=== PATIENT | male | born 2005 | race African-American/Black ===

== ENCOUNTER 2025-02-16 19:54 | Emergency (ER) | payer OTHER, SELFPAY ==
[~2025-02-16] VITALS: Ht 182.9 cm; Wt 70.0 kg
--- NOTE | 2025-02-16 20:22 | ED.PDOC ---
Musculoskeletal HPI Comments 19-year-old male came to ER via EMS for right shoulder pain. Patient was playing football at around 7:00 p.m., jump up to catch the ball with his right hand, when he felt his right shoulder pop. Right shoulder deformity noted. Denies any history of dislocations Chief Complaint: Upper Extremity Time Seen by MD: 20:21 Reviewed Notes: Nurses Notes Allergies: Coded Allergies: NO KNOWN ALLERGIES (Unverified , 02/16/25) Home Meds Active Scripts Meloxicam (Meloxicam) 7.5 Mg Tab, 1 TAB PO DAILY PRN, #30 TAB 2 Refills Prov:NATA JAMES MD 02/16/25 Information Source: Patient Mode of Arrival: Ambulatory Location: Right Extremity Location: Shoulder Timing: Minutes Severity: Moderate Able to Move Extremity: No Bear Weight: Limited Pain: Moderate Hand Dominance: Right Mechanism: Spontaneous Circumstances: Sporting Onset of Symptoms: Spontaneous Symptoms: Swelling, Pain Associated signs and symptoms: Shoulder pain (Right) Past Medical History PAST MEDICAL HISTORY: Denies Surgical History: Denies all surgeries Family History Family History: Reviewed,noncontributory to illness Social History Smoker: Non-Smoker Alcohol: Denies ETOH Use Drugs: Denies Drug Use Lives In: Home Constitutional: denies: chills, diaphoresis, fatigue, fever, malaise, sweats, weakness, others EENTM: denies: blurred vision, double vision, ear bleeding, ear discharge, ear drainage, ear pain, ear ringing, eye pain, eye redness, hearing loss, mouth pain, mouth swelling, nasal discharge, nose bleeding, nose congestion, nose pain, photophobia, tearing, throat pain, throat swelling, voice changes, others Respiratory: denies: cough, hemoptysis, orthopnea, SOB at rest, shortness of breath, SOB with excertion, stridor, wheezing, others Cardiovascular: denies: chest pain, dizzy spells, diaphoresis, Dyspnea on exertion, edema, irregular heart beat, left arm pain, lightheadedness, palpitations, PND, syncope, others Gastrointestinal: denies: abdomen distended, abdominal pain, blood streaked bowels, constipated, diarrhea, dysphagia, difficulty swallowing, hematemesis, melena, nausea, poor appetite, poor fluid intake, rectal bleeding, rectal pain, vomiting, others Genitourinary: denies: burning, dysuria, flank pain, frequency, hematuria, incontinence, penile discharge, penile sore, pain, testicle pain, testicle swelling, urgency, others Neurological: denies: dizziness, fainting, headache, left sided numbness, left sided weakness, numbness, paresthesia, pre-existing deficit, right sided numbne ss, right sided weakness, seizure, speech problems, tingling, tremors, weakness, others Musculoskeletal: reports: joint pain (Right shoulder); denies: back pain, gout, joint swelling, muscle pain, muscle stiffness, neck pain, others Integumetry: denies: bruises, change in color, change in hair/nails, dryness, laceration, lesions, lumps, rash, wounds, others Allergic/Immunocompromised: denies: Difficulty Healing, Frequent Infections, Hives, Itching, others Hematologic/Lymphatic: denies: anemia, blood clots, easy bleeding, easy bruising, swollen glands, others Endocrine: denies: excessive hunger, excessive sweating, excessive thirst, excessive urination, flushing, intolerance to cold, intolerance to heat, unexplained weight gain, unexplained weight loss, others Psychiatric: denies: anxiety, bipolar disorder, depression, hopeless, panic disorder, schizophrenia, sleepless, suicidal, others Physical Exam General Appearance: No Apparent Distress, Normal HEENT: Normal ENT Inspection, Pharynx Normal, TMs Normal Neck: Full Range of Motion, Non-Tender, Normal, Normal Inspection Respiratory: Chest Non-Tender, Lungs Clear, No Accessory Muscle Use, No Respiratory Distress, Normal Breath Sounds Cardiovascular: No Edema, No JVD, No Murmur, No Gallop, Normal Peripheral Pulses, Regular Rate/Rhythm Breast Exam: Deferred Gastrointestinal: No Organomegaly, Non Tender, No Pulsatile Mass, Normal Bowel Sounds, Soft Genitalia: Deferred Pelvic: Deferred Rectal: Deferred Extremities: No calf tenderness, Normal capillary refill, Normal inspection, Normal range of motion, Non-tender, No pedal edema Musculoskeletal : Apperance: Normal Neurologic: Alert, cnc mechanic II-XII nml as Tested, No Motor Deficits, Normal Affect, Normal Mood, No Sensory Deficits Cerebellar Function: Normal Reflexes: Normal Skin: Dry, Normal Color, Warm Lymphatic: No Adenopathy Was a procedure done? Was a procedure done?: Yes Sedation Sedation?: Yes Informed consent obtained: Yes Sedation start time: 22:32 Sedation end time: 23:02 Sedation total time: 30 minute Reduction Indication: Dislocation (Right shoulder) Sedation: Consents obtained, Sedation as ordered (Ketamine, propofol) Intra-articular anesthetic keyon: Yes Post-reduction x-ray show: Reduction Informed consent obtained: Yes Risks/benefits/alt described: Yes Differential Diagnosis EXT Differential Diagnosis: Fracture, Sprain, Dislocation, Strain X-Ray, Labs, Meds, VS Vital Signs Date Time Temp Pulse Resp B/P (MAP) Pulse Ox O2 Delivery O2 Flow Rate FiO2 02/16/25 23:30 98 20 148/95 (112) 98 02/16/25 23:00 116 20 164/100 (121) 98 02/16/25 22:30 88 10 154/95 (114) 100 02/16/25 22:00 98.2 74 12 145/93 (110) 97 98.2 02/16/25 22:00 Room Air* 0 21 02/16/25 19:54 97.1 84 17 144/99 100 97.1 Current Medications Medications (Trade) Dose Ordered Sig/Ana Route Start Time Stop Time Status Last Admin Sodium Chloride 500 ml @ 500 mls/hr Q1H ONCE IV 02/16/25 23:00 02/16/25 23:59 DC 02/16/25 22:58 PROCEDURE(s): RSHD2 - R SHOULDER 2+ VIEW XRAY REASON: right shoulder dislocation injury ORDER NUMBER(s): [id number], ACCESSION NUMBER(s): [id number] CLINICAL INDICATION: right shoulder dislocation injury TECHNIQUE: 2 radiographic views of the right shoulder were obtained. Comparison: None FINDINGS/IMPRESSION: Anterior dislocation right shoulder No fracture seen Time of 1ST Reevaluation: 20:19 Reevaluation 1ST: Unchanged Patient Education/Counseling: Diagnosis, Treatment Family Education/Counseling: No Family Present Departure 1 Departure Time of Disposition: 22:30 Impression: Primary Impression: Dislocation of right shoulder joint Disposition: 01 HOME / SELF CARE / HOMELESS Condition: Stable e-Prescriptions Meloxicam (Meloxicam) 7.5 Mg Tab 1 TAB PO DAILY PRN, #30 TAB 2 Refills Prov: NATA JAMES MD 02/16/25 Discharged With: Self Critical Care Note Critical Care Time?: No Stability Stability form required: No Heart Score Heart Score: Heart Score Response (Comments) Value History N/A 0 EKG N/A 0 Age N/A 0 Risk Factors N/A 0 Troponin N/A 0 Total 0 I personally scribed for NATA JAMES MD ([email or web address]) on 02/16/25 at 20:22. Electronically submitted by Luis Bustos ([facility]). I personally scribed for NATA JAMES MD ([email or web address]) on 02/16/25 at 21:08. Electronically submitted by Luis Bustos ([facility]). I personally scribed for NATA JAMES MD ([email or web address]) on 02/16/25 at 22:55. Electronically submitted by Luis Bustos ([facility]). NATA JAMES MD Feb 16, 2025 20:22
--- NOTE | 2025-02-16 20:59 | DVH ---
CLINICAL INDICATION: right shoulder dislocation injury TECHNIQUE: 2 radiographic views of the right shoulder were obtained. Comparison: None FINDINGS/IMPRESSION: Anterior dislocation right shoulder No fracture seen
[2025-02-16 22:00] VITALS: TEMP 98.2
[2025-02-16] MEDS: PROPOFOL 10 MG/ML 20 ML IV ONE (22:32)
[2025-02-16] MEDS: KETAMINE 50mg/ML 10ml Vial (500mg/10ml) IV ONE (22:33)
[2025-02-16] MEDS: SODIUM CHLORIDE 0.9% 500 ML IV ONE (22:58)
[2025-02-16] MEDS ORDERED: MELO7.5T7 PO (23:07)
--- NOTE | 2025-02-16 23:22 | DVH ---
CLINICAL INDICATION: post reduction TECHNIQUE: XY R SHOULDER 2+ VIEW XRAY Comparison: XY R SHOULDER 2+ VIEW XRAY on DOS: 02/16/25 FINDINGS/IMPRESSION: : There is no evidence of acute fracture or dislocation. Soft tissues are unremarkable.
[2025-02-16 23:30] VITALS: BP 148/95; PULSE 98; RESP 20; O2SAT 98
== END 2025-02-17 | disposition home or self-care (01) ==
LOC: EDBD 19:54 → ER 19:54 → EDSEX 19:54 → ER 02-17
DX: S43.004A Unspecified dislocation of right shoulder joint, initial encounter (principal); Z79.899 Other long term (current) drug therapy; Y30.XXXA Falling, jumping or pushed from a high place, undetermined intent, initial encounter; Y93.61 Activity, american tackle football; Y92.89 Other specified places as the place of occurrence of the external cause; Y99.8 Other external cause status
CPT/HCPCS: 23650; 73030; 96360; 99152; 99153; 99285; J2704; J7040